=== PATIENT | female | born 1990 | race Caucasian/White ===

== ENCOUNTER 2018-07-19 00:41 | Emergency (ER) | payer SELFPAY ==
[2018-07-19 00:51] VITALS: BP 110/63
--- NOTE | 2018-07-19 02:05 | EDM.PDOC ---
ED HPI GENERAL MEDICAL PROBLEM - General Chief Complaint: Drug or Alcohol Abuse Stated Complaint: INTOXICATED Time Seen by Provider: 07/19/18 02:01 Source of Information: Reports: Family History Limitations: Reports: No Limitations - History of Present Illness INITIAL COMMENTS - FREE TEXT/NARRATIVE: pt has been drinking since 9 am today. She fell and hit the left side of her head. She has some bleeding around where there was a ear piercing, Onset: Today, Sudden Duration: Hour(s): Location: Reports: Head, Face Associated Symptoms: Reports: Other (pt is very intoxicated. 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: Psychiatric History: Reports: Depression - Infectious Disease History Infectious Disease History: Reports: Chicken Pox - Past Surgical History Female Surgical History: Reports: Section, Tubal Ligation Social & Family History - Tobacco Use Smoking Status *Q: Current Every Day Smoker Years of Tobacco use: 13 Packs/Tins Daily: 0.1 - Caffeine Use Caffeine Use: Reports: Coffee, Energy Drinks, Soda, Tea - Recreational Drug Use Recreational Drug Use: Yes Drug Use in Last 12 Months: Yes ED ROS GENERAL - Review of Systems Review Of Systems: See Below Constitutional: Reports: No Symptoms HEENT: Reports: No Symptoms Respiratory: Reports: No Symptoms Cardiovascular: Reports: No Symptoms Endocrine: Reports: No Symptoms GI/Abdominal: Reports: No Symptoms : Reports: No Symptoms Musculoskeletal: Reports: No Symptoms Neurological: Reports: Other (pt did hjave a 5 min loss of consciouness. She is very intoxicated. She started drinking at 9 am. ) - Physical Exam Exam: See Below Text/Narrative:: pt arrived intoxicated. . She had fallen and hit the rt side of her head She was knocked out for about 5 minutes. Exam Limited By: No Limitations General Appearance: Alert, Other (pt is quite intoxicated. ) Ears: Other (pt has some bleeding on the left ear from her fall, no true lacerations. ) Nose: Normal Inspection Throat/Mouth: Normal Inspection Head Exam: Atraumatic, Other (pt did not have swelling on the left side of the head. ) Neck: Normal Inspection Respiratory/Chest: No Respiratory Distress Cardiovascular: Regular Rate, Rhythm GI/Abdominal: Soft, Non-Tender Rectal (Female) Exam: Deferred Neuro Exam (Abbreviated): Alert, Oriented, Normal Cognition, Other (pt is intoxicated. ) Back Exam: Normal Inspection Extremities: Normal Inspection Course - Vital Signs Last Recorded V/S: Last Vital Signs Temp 36.0 C 07/19/18 00:56 Pulse 75 07/19/18 00:56 Resp 17 07/19/18 00:56 BP 110/63 07/19/18 00:56 Pulse Ox 98 07/19/18 00:56 - Orders/Labs/Meds Labs: Laboratory Tests 07/19/18 07/19/18 Range/Units 02:55 02:55 WBC 6.0 (4.5-11.0) K/uL RBC 4.33 (3.30-5.50) M/uL Hgb 12.3 (12.0-15.0) g/dL Hct 39.0 (36.0-48.0) % MCV 90 (80-98) fL MCH 28 (27-31) pg MCHC 32 (32-36) % Plt Count 254 (150-400) K/uL Neut % (Auto) 55 (36-66) % Lymph % (Auto) 35 (24-44) % Putnam % (Auto) 7 H (2-6) % Eos % (Auto) 2 (2-4) % Baso % (Auto) 1 (0-1) % Ethyl Alcohol 215 mg/dL Meds: Medications Discontinued Medications Generic Name Dose Route Start Last Admin Trade Name Freq PRN Reason Stop Dose Admin Bacitracin 1 dose 07/19/18 02:00 Bacitracin Oint 1 Gm TOP 07/19/18 02:01 ONETIME ONE - Re-Assessments/Exams Free Text/Narrative Re-Assessment/Exam: 07/19/18 03:06 cat scan of the head was neg. Departure - Departure Time of Disposition: 03:26 Disposition: Home, Self-Care 01 Condition: Fair Clinical Impression: Abrasion of left ear, Intoxication - Discharge Information Instructions: Abrasion, [id number] Referrals: PCP,None [Primary Care Provider] - Forms: ED Department Discharge Care Plan Goals: Return if further problems.
--- NOTE | 2018-07-19 02:55 | CRLCT ---
INDICATION: Fall hit head loss of consciousness TECHNIQUE: CT Head without i.v. contrast. COMPARISON: None FINDINGS: CSF space: The ventricles are normal for age. Brain: No evidence of mass, acute infarction or hemorrhage is seen. No mass-effect or midline shift is seen. The brain parenchyma is otherwise normal in appearance with preservation of the adair-white matter junction. Calvarium: The visualized paranasal sinuses are well aerated. The mastoid air cells are clear. The visualized orbits are grossly unremarkable. The calvarium is unremarkable in appearance with no fractures identified. IMPRESSION: 1. No evidence of acute infarction, intracranial hemorrhage, or mass-effect seen. Please note that all CT scans at this facility use dose modulation, iterative reconstruction, and/or weight-based dosing when appropriate to reduce radiation dose to as low as reasonably achievable. Dictated by: Romie Maurer MD @ 07/19/2018 02:54:27 (Electronically Signed)
[2018-07-19] MEDS: Bacitracin Oint 1 GM U/D Packet TOP ONE (03:25)
== END 2018-07-19 03:35 | disposition home or self-care (01) ==
LOC: JP.ED 00:41
DX: S00.412A Abrasion of left ear, initial encounter (principal); F10.129 Alcohol abuse with intoxication, unspecified; F17.210 Nicotine dependence, cigarettes, uncomplicated; Z98.51 Tubal ligation status; Z88.0 Allergy status to penicillin; Z88.1 Allergy status to other antibiotic agents; W01.10XA Fall on same level from slipping, tripping and stumbling with subsequent striking against unspecified object, initial encounter
CPT/HCPCS: 36415; 70450; 85025; 99284; G0480

== ENCOUNTER 2018-10-30 10:04 | Emergency (ER) | payer MEDICAID, OTHER ==
[2018-10-30 10:23] VITALS: BP 121/74; PULSE 79
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
[2018-10-30] MEDS ORDERED: Bacitracin Oint 1 GM U/D Packet TOP ONE (11:48)
== END 2018-10-30 12:13 | disposition home or self-care (01) ==
LOC: JP.ED 10:04
DX: Z48.817 Encounter for surgical aftercare following surgery on the skin and subcutaneous tissue (principal); F17.210 Nicotine dependence, cigarettes, uncomplicated; Z98.51 Tubal ligation status; Z88.0 Allergy status to penicillin; Z88.5 Allergy status to narcotic agent
CPT/HCPCS: 36415; 85027; 99281; 99282

== ENCOUNTER 2019-09-20 15:00 | Emergency (ER) | payer MEDICAID ==
[2019-09-20 15:21] VITALS: BP 126/76; PULSE 94
--- NOTE | 2019-09-20 15:40 | EDM.PDOC ---
ED HPI GENERAL MEDICAL PROBLEM - General Chief Complaint: Gastrointestinal Problem Stated Complaint: NAUSEA/ 1 WEEK Time Seen by Provider: 09/20/19 15:34 Source of Information: Reports: Patient - History of Present Illness INITIAL COMMENTS - FREE TEXT/NARRATIVE: 29 year old female presents to [facility] ER for concerns regarding recurrent nausea and right sided headache. Patient has left work early on 2 days and called in ill for another day. Patient has no history of headache or migraines in the past. Patient has had recurrent nausea with very minimal headaches. At time the headache is severe. Patient just started a new job which requires her to wear a mask the entire day which is when her headaches and nausea started. Patient has had a lot more stress lately for unclear reason not discussed today. Patient has not taken any medications for headache or nausea the last 2-3 weeks. Patient has slight nausea at this time but not headache. 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 C1 fx. rib fx Psychiatric History: Reports: Depression - Infectious Disease History Infectious Disease History: Reports: Chicken Pox - Past Surgical History Female Surgical History: Reports: Section, Tubal Ligation Musculoskeletal Surgical History: Reports: Other (See Below) Other Musculoskeletal Surgeries/Procedures:: below the knee amputation on the left Social & Family History - Tobacco Use Smoking Status *Q: Current Every Day Smoker Years of Tobacco use: 15 Packs/Tins Daily: 0.5 Used Tobacco, but Quit: No Second Hand Smoke Exposure: Yes - Caffeine Use Caffeine Use: Reports: Coffee, Energy Drinks, Soda, Tea - Alcohol Use Days Per Week of Alcohol Use: 0 - Recreational Drug Use Recreational Drug Use: No ED ROS GENERAL - Review of Systems Review Of Systems: Comprehensive ROS is negative, except as noted in HPI. ED EXAM, GI/ABD - Physical Exam Exam: See Below Exam Limited By: No Limitations General Appearance: Alert, WD/WN, No Apparent Distress Eyes: Bilateral: Normal Appearance, EOMI Ears: Normal Canal, Hearing Grossly Normal Nose: Normal Inspection, Normal Mucosa Throat/Mouth: Normal Inspection, Normal Lips, Normal Gums, Normal Oropharynx, Normal Voice, No Airway Compromise Head: Normocephalic Neck: Normal Inspection, Supple, Non-Tender Respiratory/Chest: No Respiratory Distress, Lungs Clear, Normal Breath Sounds Cardiovascular: Normal Peripheral Pulses, Regular Rate, Rhythm GI/Abdominal Exam: Soft, Non-Tender (Female) Exam: Deferred Rectal (Female) Exam: Deferred Extremities: Normal Inspection, Normal Range of Motion, Non-Tender, Normal Capillary Refill, No Pedal Edema Neurological: Alert, Oriented, CN II-XII Intact, Normal Cognition, Normal Gait, Normal Reflexes, No Motor/Sensory Deficits Psychiatric: Normal Affect, Normal Mood Skin Exam: Warm, Dry, Intact, Normal Color, No Rash Course - Vital Signs Last Recorded V/S: Last Vital Signs Temp 35.4 C L 09/20/19 15:28 Pulse 94 09/20/19 15:28 Resp 18 09/20/19 15:28 BP 126/76 09/20/19 15:28 Pulse Ox 100 09/20/19 15:28 Departure - Departure Time of Disposition: 15:55 Disposition: Home, Self-Care 01 Clinical Impression: Nausea, Cephalalgia - Discharge Information Prescriptions: Ondansetron [Zofran ODT] 4 mg PO Q6H PRN 2 Days #5 tab.dis PRN Reason: Vomiting Instructions: Nausea, Adult, Form - Headache Record, Tension Headache, Adult, Migraine Headache Referrals: PCP,None [Primary Care Provider] - 2 Weeks (if symptoms continue for further work or medication alternatives ) Forms: ED Department Discharge Additional Instructions: 1. Note for work written. 2. Zofran 4mg ODT every 6-8 hours prn nausea and headache. 3. For acute headache, take naproxen 500mg or Ibuprofen 600mg Benadryl 50mg with nausea medication and take a nap in a dark room. 4. Remove mask every 2-4 hours for 10-15 minutes to decreased CO2 build up which may be the cause of your recurrent headaches and nausea the last 2 weeks. 5. Magnesium 400mg 1-2 tablets at bedimte to help with preventin of migraine headaches. 6. If a way to help manage stress so your headaches and nausea improves and does not worsen. Sepsis Event Note (ED) - Evaluation Sepsis Screening Result: No Definite Risk - Focused Exam Vital Signs: Vital Signs Temp Pulse Resp BP Pulse Ox 09/20/19 15:28 35.4 C L 94 18 126/76 100 09/20/19 15:20 35.4 C L 94 18 126/76 100
== END 2019-09-20 16:23 | disposition home or self-care (01) ==
LOC: JP.ED 15:00
DX: R11.0 Nausea (principal); R51 Headache; F17.210 Nicotine dependence, cigarettes, uncomplicated; Z88.5 Allergy status to narcotic agent; Z88.0 Allergy status to penicillin
CPT/HCPCS: 99283

== ENCOUNTER 2019-12-27 11:10 | Emergency (ER) | payer MEDICAID ==
[2019-12-27 11:45] VITALS: BP 122/76; PULSE 100
--- NOTE | 2019-12-27 12:43 | EDM.PDOC ---
ED HPI GENERAL MEDICAL PROBLEM - General Chief Complaint: Lower Extremity Injury/Pain Stated Complaint: L STUMP PAIN FROM FALL Time Seen by Provider: 12/27/19 11:45 Source of Information: Reports: Patient, Family History Limitations: Reports: No Limitations - History of Present Illness INITIAL COMMENTS - FREE TEXT/NARRATIVE: 29-year-old female who has a below the knee amputation trauma, 1 year ago, woke up this morning and while sleepy took a step not realizing she did not have her prosthesis on. She jammed the stump into the floor and is now having significant discomfort. There is also a firm swollen area laterally that she is concerned about. No other injury. 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 C1 fx. rib fx Psychiatric History: Reports: Depression - Infectious Disease History Infectious Disease History: Reports: Chicken Pox - Past Surgical History Female Surgical History: Reports: Section, Tubal Ligation Musculoskeletal Surgical History: Reports: Other (See Below) Other Musculoskeletal Surgeries/Procedures:: below the knee amputation on the left Social & Family History - Tobacco Use Smoking Status *Q: Current Every Day Smoker Years of Tobacco use: 3 Packs/Tins Daily: 0.2 - Caffeine Use Caffeine Use: Reports: Coffee, Energy Drinks, Soda, Tea Review of Systems - Review of Systems Review Of Systems: See Below Constitutional: Denies: Fever Respiratory: Denies: Shortness of Breath Cardiovascular: Denies: Chest Pain Genitourinary: Reports: No Symptoms Musculoskeletal: Reports: Leg Pain (Left side) Skin: Denies: Bruising (Some swelling of the injured area but no bruising or abrasion) ED EXAM, GENERAL - Physical Exam Exam: See Below Exam Limited By: No Limitations General Appearance: Alert, No Apparent Distress Respiratory/Chest: No Respiratory Distress Extremities: Other (Exam otherwise limited to the left leg. The stump is healed well, there is some lateral swelling just distal to the knee and tenderness to palpation. No effusion.) Neurological: Alert, Oriented Course - Vital Signs Last Recorded V/S: Last Vital Signs Temp 97.3 F 12/27/19 11:36 Pulse 100 12/27/19 11:36 Resp 15 12/27/19 11:36 BP 122/76 12/27/19 11:36 Pulse Ox 98 12/27/19 11:36 - Orders/Labs/Meds Orders: Active Orders 24 hr Category Date Time Status Knee 3V Lt [CR] Stat Exams 12/27/19 11:52 Taken - Re-Assessments/Exams Free Text/Narrative Re-Assessment/Exam: 12/27/19 12:58 And knee x-ray was done that showed no new fracture. She was diagnosed with contusion. Departure - Departure Time of Disposition: 13:00 Disposition: Home, Self-Care 01 Clinical Impression: Contusion of left leg Qualifiers: Encounter type: initial encounter Qualified Code(s): S80.12XA - Contusion of left lower leg, initial encounter - Discharge Information Instructions: Contusion, [id number] Referrals: Emma Pryor DO [Primary Care Provider] - Forms: ED Department Discharge Care Plan Goals: Use crutches for the next several days and increase activity as tolerated. Recheck Sunday as scheduled Sepsis Event Note (ED) - Evaluation Sepsis Screening Result: No Definite Risk - Focused Exam Vital Signs: Vital Signs Temp Pulse Resp BP Pulse Ox 12/27/19 11:36 97.3 F 100 15 122/76 98 - My Orders Last 24 Hours: My Active Orders 12/27/19 11:52 Knee 3V Lt [CR] Stat - Assessment/Plan Last 24 Hours: My Active Orders 12/27/19 11:52 Knee 3V Lt [CR] Stat
--- NOTE | 2019-12-29 09:31 | CR ---
Knee 3V Lt CLINICAL HISTORY: Fall, pain at stump FINDINGS: Patient is status post BKA. Stump margins are well-defined. No soft tissue abnormality noted No acute fracture or dislocation is noted. There are no osseous lesions. Impression: Status post BKA No fracture
== END 2019-12-27 12:59 | disposition home or self-care (01) ==
LOC: JP.ED 11:10
DX: S80.12XA Contusion of left lower leg, initial encounter (principal); F17.210 Nicotine dependence, cigarettes, uncomplicated; Z88.5 Allergy status to narcotic agent; Z88.1 Allergy status to other antibiotic agents; Z88.0 Allergy status to penicillin; Z98.890 Other specified postprocedural states; W18.30XA Fall on same level, unspecified, initial encounter
CPT/HCPCS: 73562-26-LT; 73562-LT; 99282; 99283